=== PATIENT | female | born 1950 | race Caucasian/White ===

== ENCOUNTER → 2020-08-07 | Outpatient (CLI) | payer MEDICARE, BC ==
--- NOTE | 2020-08-07 13:37 | KCIC ---
EXAM: XR SHOULDER 2+ VIEWS, XR KNEE 3 VIEWS 08/07/2020 11:14 AM CLINICAL INDICATION: Chronic bilateral shoulder pain, chronic bilateral knee pain COMPARISON: None TECHNIQUE: 3 views of the right and left shoulder. 3 views of the right and left knee FINDINGS: Right shoulder: No acute fracture or malalignment. There is mild acromioclavicular degenerative joint disease. Mild glenohumeral degenerative joint disease with small anterior osteophytes. The subacromi al space is maintained. Soft tissue is normal. Left shoulder: No acute fracture or malalignment. There is mild acromioclavicular degenerative joint disease. The glenohumeral joint is maintained. There is some chronic bony irregularity at the greater tuberosity, likely sequela chronic rotator cuff pathology. Subacromial space is normal. Soft tissue is normal. Right knee: No acute fracture or malalignment. There is mild medial compartment narrowing. Small tric ompartmental osteophytes. No joint effusion or soft tissue abnormality. Left knee: No acute fracture. Alignment is normal. There is mild medial and lateral compartment narro wing and small tricompartmental osteophytes. No joint effusion or soft tissue abnormality IMPRESSION: 1. 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 2. Mild left acromioclavicular degenerative joint disease. Bony findings at the left greater tuberosi ty suggesting chronic rotator cuff pathology. 3. 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 Electronically signed by: Desiree Marquez MD (08/07/2020 1:34 PM) [id number]
== END ==
LOC: KCIC 11:10
PROVIDERS: ATTEND Nurse Practitioner Gerontology
DX: M19.012 Primary osteoarthritis, left shoulder (principal); M19.011 Primary osteoarthritis, right shoulder; M17.0 Bilateral primary osteoarthritis of knee
CPT/HCPCS: 73562-50